=== PATIENT | female | born 1965 | race Caucasian/White ===

== ENCOUNTER 2024-11-28 14:42 | Emergency (ER) | payer BC, SELFPAY ==
[2024-11-28 14:44] VITALS: BP 159/88; PULSE 84; RESP 18; TEMP 36.4; O2SAT 99; BMI 31.0
--- NOTE | 2024-11-28 15:46 | EKG12_ITS ---
Test Reason : Blood Pressure : */* mmHG Vent. Rate : 67 BPM Atrial Rate : 67 BPM P-R Int : 156 ms QRS Dur : 76 ms QT Int : 388 ms P-R-T Axes : 45 20 5 degrees QTcB Int : 409 ms Normal sinus rhythm Normal ECG Confirmed by Michael Del Rio ([id number]), publication editor YOSHI CALLAWAY ([id number]) on 12/02/2024 11:53:44 AM Referred By: ISHAN/BAILEY Confirmed By: Michael Del Rio
--- NOTE | 2024-11-28 15:47 | EX.ED.DYSGE1 ---
HPI History of Present Illness Chief Complaint: General Illness Detail of Chief Complaint: Positional dizziness resolved. Informant: patient Onset/Context/Timing Onset: Days Context: Sudden Onset Timing: Lasts (Seconds.) Current Severity: Gone Maximum Severity: Mild Narrative Narrative: 59-year-old female history of vertigo and ulcerative colitis. She is from [place]. Her son goes to the [employer] and plays baseball here. She said she has been to games recently and she jumps at the cheer she gets room spinning dizziness. Denies any headaches or head trauma. Denies recent illness. Denies any trouble with her vision, speech or moving her arms or legs. No weakness. No trouble walking. Currently she is symptom-free. Prior similar symptoms: Yes Recent Illness/Hospitalization: No PFSH [facility] Medical History (Updated 11/28/24 @ 18:[address] Padilla Bell MD) Vertigo Ulcerative colitis Home Medications ?Medication ?Instructions ?Recorded ?Last Taken ?Type alprazolam 0.25 mg tablet 0.25 mg PO Q6H PRN 11/28/24 Unknown History aspirin 81 mg chewable tablet 1 tab PO DAILY 11/28/24 11/28/24 History azelastine 137 mcg (0.1 %) nasal 2 spray intranasal BID 11/28/24 11/28/24 History spray cetirizine 10 mg tablet (24Hour 10 mg PO DAILY 11/28/24 11/28/24 History Allergy) cholecalciferol (vitamin D3) 25 25 mcg PO DAILY 11/28/24 11/28/24 History mcg (1,000 unit) capsule ergocalciferol (vitamin D2) 1,250 1,250 mcg PO QWEEK 11/28/24 11/27/24 History mcg (50,000 unit) capsule estradiol 1 mg tablet 1 mg PO DAILY 11/28/24 11/28/24 History famotidine 20 mg tablet (Acid 20 mg PO DAILY 11/28/24 11/27/24 History Controller) fluticasone propionate 50 1 - 2 spray intranasal BID 11/28/24 11/28/24 History mcg/actuation nasal spray,suspension levothyroxine 88 mcg tablet 88 mcg PO DAILY 11/28/24 11/28/24 History meclizine 25 mg chewable tablet 25 mg PO TID PRN dizziness #14 tabs 11/28/24 Unknown Rx (Antivert) mesalamine 1.2 gram tablet,delayed 4.8 g PO DAILY 11/28/24 11/28/24 History release omeprazole 20 mg capsule,delayed 20 mg PO DAILY 11/28/24 11/28/24 History release progesterone micronized 200 mg 200 mg PO .COMPLEX 11/28/24 11/28/24 History capsule rosuvastatin 10 mg tablet 10 mg PO QHS 11/28/24 11/27/24 History sertraline 100 mg tablet 200 mg PO DAILY 11/28/24 11/28/24 History Allergy/AdvReac Type Severity Reaction Status Date / Time Cephalosporins Allergy Mild Hives Verified 11/28/24 14:44 Penicillins Allergy Mild Hives Verified 11/28/24 14:44 Sulfa (Sulfonamide Allergy Mild Hives Verified 11/28/24 14:44 Antibiotics) Tetracyclines Allergy Mild Hives Verified 11/28/24 14:44 Social History Smoking Status: Never smoker ROS ROS ED ROS Narrative Denies recent illness. Constitutional Constitutional ED: Denies chills or fever(s) Eyes Eyes: Denies blurry vision ENT ENT ED: Denies ear pain, rhinorrhea or sore throat Cardiovascular Cardiovascular: Denies chest pain Respiratory/Chest Respiratory/Chest: Denies cough, dyspnea or dyspnea on exertion Gastrointestinal Gastrointestinal: Denies abdominal pain, constipation, diarrhea, melena or vomiting Genitourinary Genitourinary ED: Denies dysuria or hematuria Musculoskeletal Musculoskeletal: Denies arthralgias or back pain Integumentary Denies abscess or Abrasions Neurologic Neurologic: Denies headache(s) Psychiatric Psychiatric: Denies anxiety or depression Endocrine Endocrinology: Denies cold intolerance or heat intolerance Hematologic/Lymphatic Hematologic/Lymphatic: Reports none Allergic/Immunologic Allergic/Immunologic ED: Denies mouth swelling, tongue swelling or urticaria EXAM Physical Exam Narrative Exam Narrative: For diarrhea female sitting upright in bed. Vital signs are stable afebrile. No acute distress. Pulse ox 9% room air no hypoxia. H EENT exam pupils round reactive light. Mytrex membranes. No facial droop. Normal speech. Neck nontender no lymphadenopathy. Lungs clear to auscultation. Heart regular rhythm rate about 80 no murmur. Chest wall and ribs nontender. Abdomen soft nontender. Moving all 4 extremities. 5 out of 5 academic registrar strength. Dorsi plantarflexion intact. Calves nontender no edema no cords. Fingertip to nose [id number] within normal limits. No drift. Neurologically she is awake alert. Answering questions following commands. NIH score 0. Const Vital Signs: 11/28/24 14:44 11/28/24 15:27 11/28/24 16:39 Temperature 97.5 F L Temperature Source Temporal Pulse Rate 84 74 Pulse Rate [Lying] Pulse Rate [Sitting (for 1 minute prior to obtaining)] Pulse Rate [Standing (for 1 minute prior to obtaining)] Respiratory Rate 18 16 Respiratory Effort Normal Respiratory Pattern Normal Blood Pressure 159/88 H 138/83 H Blood Pressure [Lying] Blood Pressure [Sitting (for 1 minute prior to obtaining)] Blood Pressure [Standing (for 1 minute prior to obtaining)] Blood Pressure Mean 111 101 Blood Pressure Mean [Lying] Blood Pressure Mean [Sitting (for 1 minute prior to obtaining)] Blood Pressure Mean [Standing (for 1 minute prior to obtaining)] Pulse Ox 99 98 Oxygen Delivery Method Room Air Room Air 11/28/24 18:00 11/28/24 18:08 Temperature Temperature Source Pulse Rate 74 Pulse Rate [Lying] 69 Pulse Rate [Sitting (for 1 minute prior to obtaining)] 73 Pulse Rate [Standing (for 1 minute prior to obtaining)] 83 Respiratory Rate 15 Respiratory Effort Respiratory Pattern Blood Pressure 133/72 H Blood Pressure [Lying] 121/71 H Blood Pressure [Sitting (for 1 minute prior to obtaining)] 138/78 H Blood Pressure [Standing (for 1 minute prior to obtaining)] 147/87 H Blood Pressure Mean 92 Blood Pressure Mean [Lying] 87 Blood Pressure Mean [Sitting (for 1 minute prior to obtaining)] 98 Blood Pressure Mean [Standing (for 1 minute prior to obtaining)] 107 Pulse Ox 98 Oxygen Delivery Method Room Air Positive well nourished and well developed; Negative for cachectic, contractures or unkempt General Appearance ED: well developed and NAD; Negative for unkempt, cachectic, contractures, cyanotic, diaphoretic or pallor Nutritional Appearance: Negative for cachectic HEENT Reports moist mucous membranes Negative for trauma or tenderness Eyes PERRL and EOMs intact bilaterally General Eye ED: Negative for pale conjunctiva or scleral icterus Neck no lymphadenopathy, supple and no JVD General: Negative for tenderness Lymph Lymphatic: Negative for other Chest Wall inspection of chest normal and palpation of chest normal Resp normal respiratory effort and clear to auscultation bilaterally Cardio regular rate, regular rhythm, S1 normal heart sound, S2 normal heart sound and no murmurs GI normal to inspection, nondistended, normoactive bowel sounds, non-tender, non-distended and no masses Inspection: Negative for abdominal distention Auscultation: normoactive bowel sounds Palpation: soft; Negative for tender or guarding Back/Spine no CVA tenderness General Back: Negative for CVA tenderness Cervical Spine: Negative for cervical spine tenderness Thoracic Spine / Upper Back: Negative for thoracic spinal tenderness or paraspinal muscle tenderness Lumbar Spine / Lower Back: Negative for lumbar spinal tenderness Extremity normal to inspection General Extremety ED: Negative for edema or tenderness General Extremity: Negative for edema Neuro CN's II-XII intact bilaterally and no sensory deficits noted Neuro Narrative: NIH equals 0. Sensorium / Orientation: alert; Negative for orientation impaired, lethargic or stuporous Motor Exam: strength 5/5 throughout; Negative for general weakness or strength abnormal Psych mental status grossly normal Appearance: Negative for unkempt Attitude: No agitated Mood & Affect: Negative for depressed, anxious or tearful Skin no rashes or lesions noted, no wounds and skin turgor normal General Skin Exam: elasticity normal; Negative for jaundice or pallor Lesions: No lesion noted Rashes: No rashes noted Trauma: Negative for abrasion Wounds: Negative for wounds noted MDM MDM MDM Narrative Medical decision making narrative: 59-year-old female intermittent dizziness Chery was standing suddenly. Currently symptom-free has a completely normal exam and normal neurologic exam. I do not think she needs any brain imaging. Elevated I will obtain a CBC and chemistry to rule out anemia or dehydration. Will do orthostatic vital signs. Obtain an EKG even though I think her rhythm is normal. Repeat exam unchanged. We did orthostatic vital signs they were unremarkable. Her pressure actually went up when she stood up. Patient is having transient dizziness that resolves. Primarily positional. This could be benign positional vertigo. She will be given a prescription for Antivert. Instructed to follow-up with her doctor if not improving. Return if worse. History & Record Review Discussion w/independent historian: Patient Additional record(s) reviewed:: No prior records Lab Data Attestation: I reviewed the patient's lab results. Lab results narrative: CBC normal. White count 8. H&H 14 and 43. Platelets 266. Electrolytes normal. Gap 11. Normal BUN and creatinine of 16 and 0.7. Glucose 95. Labs: Laboratory Results - last 24 hr 11/28/24 15:16 WBC 8.7 RBC 4.90 Hgb 14.6 Hct 43.2 MCV 88.2 MCH 29.8 MCHC 33.8 RDW Std Deviation 42.9 RDW Coeff of Fabian 13.2 Plt Count 266 MPV 11.4 Immature Gran % (Auto) 0.700 Neut % (Auto) 61.2 Lymph % (Auto) 26.6 [place] % (Auto) 8.6 Eos % (Auto) 2.3 Baso % (Auto) 0.6 Absolute Neuts (auto) 5.3 Absolute Lymphs (auto) 2.30 Nucleated RBC % 0 Sodium 139 Potassium 4.1 Chloride 104 Carbon Dioxide 24.0 Anion Gap 11 BUN 16 Creatinine 0.73 Estim Creat Clear Calc 89.13 Est GFR (MDRD) Non-Af 94 BUN/Creatinine Ratio 22.1 H Glucose 95 Calcium 10.6 Discharge Plan Triage Chief Complaint: General Illness ED Provider: Padilla Bell Dx/Rx/DC Orders Clinical Impression: Dizziness, Hx of vertigo Instructions: ED Dizziness, Uncertain Cause Prescriptions: New meclizine [Antivert] 25 mg tablet,chewable 25 mg PO TID PRN (Reason: dizziness) Qty: 14 0RF Rx Instructions: Your dizziness may be secondary to vertigo. This medication may help. No Action sertraline 100 mg tablet 200 mg PO DAILY levothyroxine 88 mcg tablet 88 mcg PO DAILY estradiol 1 mg tablet 1 mg PO DAILY progesterone micronized 200 mg capsule 200 mg PO .COMPLEX Rx Instructions: 200 mg orally DAILY THE FIRST 12 DAYS OF EACH MONTH; ergocalciferol (vitamin D2) 1,250 mcg (50,000 unit) capsule 1,250 mcg PO QWEEK azelastine 137 mcg (0.1 %) spray,non-aerosol 2 spray INTRANASAL BID fluticasone propionate 50 mcg/actuation spray,suspension 1 - 2 spray INTRANASAL BID rosuvastatin 10 mg tablet 10 mg PO QHS mesalamine 1.2 gram tablet,delayed release (DR/EC) 4.8 g PO DAILY cetirizine [24Hour Allergy] 10 mg tablet 10 mg PO DAILY cholecalciferol (vitamin D3) 25 mcg (1,000 unit) capsule 25 mcg PO DAILY famotidine [Acid Controller] 20 mg tablet 20 mg PO DAILY aspirin 81 mg tablet,chewable 1 tab PO DAILY alprazolam 0.25 mg tablet 0.25 mg PO Q6H PRN omeprazole 20 mg capsule,delayed release(DR/EC) 20 mg PO DAILY Primary Care Provider: CAL MCNEIL Referrals: [facility] Doctor,Out of [Non-Staff] - Activity Restrictions/Additional Instructions: Dizziness uncertain cause may or may not be secondary to vertigo. Follow-up with your doctor and to get back to [place]. You can try the Antivert to see if it helps if it does he be secondary to the vertigo. Print Language: Arabic Disposition Disposition: Home, Self Care
[2024-11-28 16:05] LABS: Absolute Neutrophil Count 5.3 X10^3/uL (2.0-7.7); Basophil# 0.05 X10^3/uL; Basophil% 0.6 % (0-1); Eosinophils% 2.3 % (0-5); Hematocrit 43.2 % (37-47); Hemoglobin 14.6 g/dL (12.0-15.0); Lymphocyte % 26.6 % (19-41); Mean Corp Hgb Conc 33.8 g/dL (32-36); Mean Corpuscular Hgb 29.8 pg (27.0-32.0); Mean Corpuscular Volume 88.2 fL (81-99); Mean Platelet Vol. 11.4 fl (6.2-12.0); Monocyte# 0.74 X10^3/uL; Monocyte% 8.6 % (0-10); NRBC Flagged by Analyzer 0 % (0-5); Neutrophil % 61.2 % (47-70); Platelet Count 266 K/mm3 (150-450); RBC Distribution Width CV 13.2 % (11.6-14.6); RBC Distribution Width SD 42.9 fl (35.1-43.9); White Blood Count 8.7 K/mm3 (4.4-11.0)
[2024-11-28 16:26] LABS: Anion Gap 11 (5-15); BUN 16 mg/dL (4-19); BUN/Creat Ratio 22.1 RATIO (10-20); Calcium,Total 10.6 mg/dL (7.6-11.0); Chloride 104 mmol/L (98-108); Creatinine, Serum 0.73 mg/dL (0.70-1.20); EST Glomerular Filtration Rate 94 (>60); Estimated Creatinine Clearance 89.13 ml/min (50-250); Glucose 95 mg/dL (70-99); Potassium 4.1 mmol/L (3.3-5.1); Sodium Level 139 mmol/L (133-145)
[2024-11-28 16:39] VITALS: BP 138/83; PULSE 74; RESP 16; O2SAT 98
[2024-11-28 18:00] VITALS: BP 133/72; PULSE 74; RESP 15; O2SAT 98
[2024-11-28 18:08] VITALS: BP 121/71; BP 138/78; BP 147/87; PULSE 69; PULSE 73; PULSE 83
[2024-11-28 18:43] VITALS: BP 125/72; PULSE 87; RESP 16; TEMP 36.9; O2SAT 97
== END 2024-11-28 18:49 | disposition home or self-care (01) ==
PROVIDERS: Emergency Provider Emergency Medicine; Visit Provider Emergency Medicine
DX: R42 Dizziness and giddiness (principal); Z79.82 Long term (current) use of aspirin; Z79.899 Other long term (current) drug therapy
CPT/HCPCS: 80048; 85025; 93005; 99284; A4216